=== PATIENT | female | born 1980 | race Hispanic/Latino ===

== ENCOUNTER 2019-05-13 19:12 | Emergency (ER) | payer MEDICAID, SELFPAY ==
--- NOTE | 2019-05-13 20:29 | RAD ---
TWO VIEW CHEST: 05/13/19 HISTORY: Cough. Lung ayon are clear. Heart and mediastinum appear normal. IMPRESSION: No acute process. POS: [facility]
== END 2019-05-13 20:38 | disposition home or self-care (01) ==
LOC: ERS 19:12
DX: J01.90 Acute sinusitis, unspecified (principal); J06.9 Acute upper respiratory infection, unspecified
CPT/HCPCS: 71046

== ENCOUNTER 2022-02-24 17:08 | Emergency (ER) | payer SELFPAY ==
[2022-02-24] MEDS ORDERED: Dexamethasone 10 MG/ML VIAL ONE (17:55)
== END 2022-02-24 18:49 | disposition home or self-care (01) ==
LOC: ERS 17:08
DX: J02.9 Acute pharyngitis, unspecified (principal)
CPT/HCPCS: 87081; 87430; 99283; J1100